=== PATIENT | female | born 1950 | race Two or more races ===

== ENCOUNTER → 2020-11-23 | Day surgery (SDC) | payer OTHER ==
[~2020-11-23] MED LIST: CLONAZEPAM0.5 MG PO; COZAAR25 MG PO; CYMBALTA60 MG PO; FINOFIBRATE PO; GRALISE600 MG PO; INTESTINEX680 M1 PO; ISOSORBIDE DINI20 MG PO; PIOGLITAZONE HC15 MG PO; PLAVIX75 MG PO; PREVACID15 MG PO; RESTORIL30 M1 PO; SIMVASTAT PO; SINGULAIR 10MG10 MG PO; TOPROL XL50 M1 PO
== END | disposition home or self-care (01) ==
LOC: ADM 11-16 14:00 → AMB-ENDOS 06:41
PROVIDERS: ATTEND Surgery
DX: K62.89 Other specified diseases of anus and rectum (principal); Z20.822 Contact with and (suspected) exposure to COVID-19

== ENCOUNTER 2021-01-03 10:45 | Inpatient (IN) | payer OTHER ==
[~2021-01-03] VITALS: Ht 154.9 cm; Wt 67.6 kg
[2021-01-03] MEDS ORDERED: PIOGLITAZONE HC15 MG PO (15:20)
[2021-01-03] MEDS ORDERED: GRALISE600 MG PO (15:21)
[2021-01-03] MEDS ORDERED: COZAAR25 MG PO (15:21)
[2021-01-03] MEDS ORDERED: SIMVASTAT PO (15:22)
[2021-01-03] MEDS ORDERED: TOPROL XL50 M1 PO (15:22)
[2021-01-03] MEDS ORDERED: CYMBALTA60 MG PO (15:22)
[2021-01-03] MEDS ORDERED: ISOSORBIDE DINI20 MG PO (15:23)
[2021-01-03] MEDS ORDERED: FINOFIBRATE PO (15:24)
[2021-01-03] MEDS ORDERED: INTESTINEX680 M1 PO (15:24)
[2021-01-03] MEDS ORDERED: PLAVIX75 MG PO (15:25)
[2021-01-03] MEDS ORDERED: CLONAZEPAM0.5 MG PO (15:25)
[2021-01-03] MEDS ORDERED: PREVACID15 MG PO (15:25)
[2021-01-03] MEDS ORDERED: RESTORIL30 M1 PO (15:26)
[2021-01-03] MEDS ORDERED: SINGULAIR 10MG10 MG PO (15:26)
[2021-01-24] MEDS ORDERED: METRONIDAZOLE45 G1 (15:15)
[2021-01-24] MEDS ORDERED: SIMVASTATIN20 MG (15:15)
[2021-01-24] MEDS ORDERED: TRAMADOL HCL50 MG (15:16)
[2021-01-24] MEDS ORDERED: SYNTHROID75 MCG (15:16)
[2021-01-24] MEDS ORDERED: METOPROLOL TART50 MG (15:16)
[2021-01-24] MEDS ORDERED: ISOSORBIDE MONO20 MG (15:16)
[2021-01-24] MEDS ORDERED: FARXIGA10 MG (15:16)
[2021-01-24] MEDS ORDERED: SEMGLEE100 UNIT/1 (15:17)
[2021-01-24] MEDS ORDERED: FENOFIBRATE160 MG (15:17)
[2021-01-24] MEDS ORDERED: GLIMEPIRIDE2 M1 (15:18)
[2021-01-24] MEDS ORDERED: EYE ITCH RELIEF5 ML (15:18)
[2021-01-24] MEDS ORDERED: SERTRALINE HCL50 MG (15:18)
[2021-01-27] MEDS ORDERED: HYOSCYAMINE0.125 M1 SL (11:44)
[2021-01-27] MEDS ORDERED: INTESTINEX680 M1 PO (11:45)
[2021-01-27] MEDS ORDERED: OXYC1TAB9 PO (11:45)
== END 2021-01-27 12:58 | disposition home or self-care (01) | DRG 331 ==
LOC: SURH 01-08 10:45 → SURG 01-24 09:06 → O/R 01-24 09:06 → SURG 01-24 19:52
PROVIDERS: ADMIT Surgery; ATTEND Surgery
PROC: 0DNK4ZZ Release Ascending Colon, Percutaneous Endoscopic Approach (ICD-10-PCS; 2021-01-24)
PROC: 07BC4ZX Excision of Pelvis Lymphatic, Percutaneous Endoscopic Approach, Diagnostic (ICD-10-PCS; 2021-01-24)
PROC: 3E0F7SF Introduction of Other Gas into Respiratory Tract, Via Natural or Artificial Opening (ICD-10-PCS; 2021-01-24)
PROC: 0DTF4ZZ Resection of Right Large Intestine, Percutaneous Endoscopic Approach (ICD-10-PCS; principal; 2021-01-24 14:00)
DX: D12.6 Benign neoplasm of colon, unspecified (principal); K57.30 Diverticulosis of large intestine without perforation or abscess without bleeding; K66.0 Peritoneal adhesions (postprocedural) (postinfection)